=== PATIENT | male | born 2000 | race Caucasian/White ===

== ENCOUNTER 2022-03-24 14:00 | Outpatient (RCR) | payer OTHER, SELFPAY | END 2022-06-14 14:31 | disposition home or self-care (01) | PROVIDERS: PCP Family Medicine; Visit Provider Family Medicine | DX: M25.852 Other specified joint disorders, left hip (principal); Z51.89 Encounter for other specified aftercare | CPT/HCPCS: 97110; 97140; 97161 ==

== ENCOUNTER 2022-08-02 18:15 | Outpatient (REF) | payer OTHER, SELFPAY ==
--- OUTSIDE RECORDS SUMMARY | 2022-08-02 18:24 | XMS_ITS ---
:2000 Author Organization [facility] Address [address] [place] [address] Care Team Providers Name Role Phone Axel Mendoza Unavailable Unavailable PROBLEMS Unknown Problems ALLERGIES Substance Reaction Event Type Date Status Ibuprofen tightness in chest, nausea Drug Allergy Jan, A ctive Aspirin anaphylaxis Drug Allergy Jan, Active ENCOUNTERS Encounter Location Date Diagnosis [address] Jan, Contact [facility] [place] [address] (suspecte d) exposure to covid-[address] Apr, Close expo sure to [address] [place] [address] novel cor onavirus Z20.[address] Mar, Close expo sure to [address] [place] [address] novel cor onavirus Z20.828 IMMUNIZATIONS No Known Immunizations SOCIAL HISTORY Qualifiers Date Never Smoker REASON FOR REFERRAL FUNCTIONAL STATUS PLAN OF CARE VITAL SIGNS MEDICATIONS Medication Instructions Dosage Frequency Start Date End Date Duration S tatus Flovent HFA Active Albuterol Active PROCEDURES Procedure Date Ordered Result Body Site Infectious agent detection by nucleic acid (DNA or Mar 30, 2020 RNA); severe acute respiratory syndrome coronavirus 2 (SARS-CoV-2) (Coronavirus disease [COVID-19]), amplified probe technique Infectious agent detection by nucleic acid (DNA or Jan 11, 2021 RNA); severe acute respiratory syndrome coronavirus 2 (SARS-CoV-2) (Coronavirus disease [COVID-19]), amplified probe technique Infectious agent detection by nucleic acid (DNA or Apr 14, 2020 RNA); severe acute respiratory syndrome coronavirus 2 (SARS-CoV-2) (Coronavirus disease [COVID-19]), amplified probe technique RESULTS Name Result Date Reference Range COVID-19 Molecular Nucleic Acid Amplification 20 29-01-03 Test (NAAT) COVID-19 NEGATIVE COVID-19 Molecular Nucleic Acid Amplification Test (NAAT) COVID-19 NEG COVID-19 Molecular Nucleic Acid Amplification Test (NAAT) COVID-19 Neg REASON FOR VISIT COVID-19 RELATED, Possible Exposure (4 days ago), no sx, fully vaccinated, COVID-19 RELATED, Exposure 10 days ago, no symptoms, COVID-19 RELATED Insurance Providers [facility] Member Patient Patient Patient Patient Patient Subscriber Subscriber Subscriber Group Insurance Plan Plan Plan Plan ID Relationship Address Phone Name Date of ID Name Date of No Type Insurance Insurance Insurance Coverage to Subscriber Address Phone Name Dates Blue [phone] [place] [id number] MARK [id number] Shield PPO [id number] Shield PPO [id number]: [place] [address] [place] [id number] [id number] [address] and [phone] Efrain FLORES 8 [id number] Esther [id number] [facility] [id number] Group
== END 2022-08-02 18:16 | disposition home or self-care (01) ==
LOC: NPINS 18:15
PROVIDERS: PCP Family Medicine; Visit Provider Family Medicine
DX: M70.41 Prepatellar bursitis, right knee (principal)
CPT/HCPCS: 87070

== ENCOUNTER 2023-10-27 23:09 | Emergency (ER) | payer OTHER, SELFPAY ==
[2023-10-27 23:14] VITALS: BP 150/74; PULSE 87; RESP 16; TEMP 36.6; O2SAT 97; BMI 23.7
--- NOTE | 2023-10-27 23:19 | ED.ALLEREA ---
HPI - Allergic Reaction General Chief complaint: Allergic Reaction Stated complaint: reaction to peanuts Time Seen by Provider: 10/27/23 23:16 History of Present Illness HPI narrative: Patient is a 23-year-old gentleman who presents with a general allergic reaction following ingestion of peanut butter cup. Patient has a history of peanut allergies in inadvertently took the peanut butter cup tonight. He did give himself an epi injection and his symptoms resolved. Typically gets throat congestion and hives which last approximately an hour. He ingested the peanut butter cup approximately 45 minutes ago. He is now feeling much better. He is breathing without any stridor and has no other concerns he states this is fairly typical for peanut exposure for him. He does have history of asthma but does not have any symptoms of wheezing. Related Data Home Medications Medication Instructions Recorded Confirmed albuterol sulfate 2.5 mg/3 mL 2.5 mg Q6H PRN cough 10/27/23 (0.083 %) solution for nebulization Allergies Allergy/AdvReac Type Severity Reaction Status Date / Time aspirin Allergy Severe Verified 10/27/23 23:16 peanuts Allergy Severe Anaphylaxis Uncoded 10/27/23 23:16 Review of Systems Status of ROS Reports: 10 or more systems reviewed and unremarkable except as noted in History and below [facility] Medical History Asthma ?J45.909 - Unspecified asthma, uncomplicated (ICD-10) Peanut allergy ?Z91.010 - Allergy to peanuts (ICD-10) Exam Narrative: Exam Narrative: EXAM GENERAL: Patient appears comfortable and well. EYES: No scleral icterus. ENT: Tympanic membranes and oropharynx normal. THYROID: no thyroid nodules or thyromegaly. LYMPH: No supraclavicular or cervical lymphadenopathy. SKIN: Visible skin seen during exam normal or with benign process only. EXT: No dependent lower extremity pedal edema. HEART: Regular rate and rhythm with no murmurs, rubs, or gallops. LUNGS: Clear to auscultation bilaterally with no crackles or wheezes. ABD: Soft, non tender, non distended. PSYCH: Good eye contact, speech is not pressured. Const: Vital Signs, click to edit/add: Vital Signs - 24 hr 10/27/23 23:14 Temperature 97.8 F Pulse Rate [Pulse Oximeter] 87 Respiratory Rate 16 Blood Pressure [Ri ght Upper Arm] 150/74 H Pulse Oximetry 97 Oxygen Delivery Me thod Room Air Course Course ED Course: Patient seen and examined. Vital Signs Vital signs: Initial Vital Signs Temperature 97.8 F 10/27/23 23:14 Temperature Source Temporal Artery Scan 10/27/23 23:14 Pulse Rate 87 10/27/23 23:14 Respiratory Rate 16 10/27/23 23:14 Blood Pressure 150/74 H 10/27/23 23:14 Blood Pressure Mean 99 10/27/23 23:14 Blood Pressure Position Sitting 10/27/23 23:14 Pulse Oximetry 97 10/27/23 23:14 Oxygen Delivery Method Room Air 10/27/23 23:14 Vital Signs Temperature 97.8 F 10/27/23 23:14 Pulse Rate 87 10/27/23 23:14 Respiratory Rate 16 10/27/23 23:14 Blood Pressure 150/74 H 10/27/23 23:14 Pulse Oximetry 97 10/27/23 23:14 Oxygen Delivery Method Room Air 10/27/23 23:14 Temperature 97.8 F 10/27/23 23:14 Pulse Rate 87 10/27/23 23:14 Respiratory Rate 16 10/27/23 23:14 Blood Pressure 150/74 H 10/27/23 23:14 Pulse Oximetry 97 10/27/23 23:14 Oxygen Delivery Method Room Air 10/27/23 23:14 MDM - Allergic Reaction MDM Narrative Medical decision making narrative: Patient is a 23-year-old gentleman with a peanut allergy who had a peanut exposure. He himself a dose of Benadryl and epinephrine and now is asymptomatic. I do note normal vitals with exception of mild hypertension as well as a normal exam. He has no difficulties with airway. I did give him 40 mg of IM Solu-Medrol and start him on whom prednisone 5 day course. He is instructed to avoid peanuts the future and was observed for safe amount time in the emergency room. Differential diagnosis include but not limited to urticaria hives allergic reaction foreign body. Discharge Plan Discharge Clinical Impression: Allergic reaction Patient Disposition: Home, Self-Care Condition: Stable Instructions: General Allergic Reaction (ED) Additional Instructions: Return if symptoms worsen Prednisone as directed Benadryl 25-50 mg 4 times a day as needed Avoid peanuts Follow-up with your doctor as needed. Activity Level: No Restrictions Discharge Diet: Regular Prescriptions: No Action albuterol sulfate 2.5 mg /3 mL (0.083 %) solution for nebulization 2.5 mg Q6H PRN (Reason: cough) Follow Up/Referrals: Johnnie Shepard MD [Primary Care Provider] - Stand Alone Forms: QR Artist Info Instructions
[2023-10-27 23:27] VITALS: PULSE 85; O2SAT 95
[2023-10-27] MEDS: METHYLPREDNISOLONE SOD SUCC 40 MG/ML IM (23:27)
--- OUTSIDE RECORDS SUMMARY | 2023-10-27 23:27 | XMS_ITS | Clinical Summary ---
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 Name Role Phone Pcp, No Primary Care Provider Unavailabl e Allergies Active Allergy Reactions Criticality Noted Date Comments Aspirin Other - Describe In Comment Field,Anaphylaxis High 08/24/2016 Chest tightness, emesis Tight chest Cat Dander Other - Describe In Comment Field 08/23/2016 Dog Dander Other - Describe In Comment Field 08/23/2016 Ibuprofen Anaphylaxis,Other - Describe In Comment Field,Chest Pain High 12/17/2018 other Tight chest Peanut Anaphylaxis High 09/08/2015 Peanut Oil Anaphylaxis High 01/25/2015 All nuts All nuts Peas Anaphylaxis High 08/23/2016 Sesame Oil Anaphylaxis High 01/25/2015 Unlisted Allergen (Include Detail In Comments) Anaphylaxis High 01/25/2015 All tree nuts All tree nuts All tree nuts Medications Medication Sig Dispensed Refills Start Date End Date Status EPINEPHrine (EPIPEN) 0.3 mg/0.3 mL auto-injector Inject 0.3 mg intramuscular. 06/17/2020 Active budesonide-formotero L (SYMBICORT) 80-4.5 mcg/actuation (80-4.5 mcg each actuation) inhaler Inhale 2 Puffs by mouth. 06/24/2020 Active loratadine (CLARITIN) 10 mg liqui-gel capsule Take by mouth. Act gonsalo albuterol sulfate (ALBUTEROL INHL) Inhale 2 Puffs by mouth. Active fluticasone propionate (FLOVENT DISKUS) 100 mcg/actuation inhaler Inhale 1 Puff by mouth. Active ondansetron (ZOFRAN) 4 mg tabletIndications:Na usea and vomiting, unspecified vomiting type Take 1 Tablet (4 mg) by mouth every 8 hours if needed for Nausea/Vomiting. 30 Tablet 05/20/2022 Active Qvar RediHaler 80 mcg/actuation HFAb HFA inhaler 08/15/2023 Active benzonatate (Tessalon Perles) 100 mg capsuleIndications:M oderate asthma with exacerbation, unspecified whether persistent,Wheezing, Bronchitis with bronchospasm Take 1 Capsule (100 mg) by mouth 3 times daily if needed for Cough. 30 Capsule 08/16/2023 Active albuterol 0.083% (2.5 mg/3 mL) neb solutionIndications: Moderate asthma with exacerbation, unspecified whether persistent,Wheezing, Bronchitis with bronchospasm Inhale 3 mL (2.5 mg) via a nebulizer every 6 hours if needed for Cough 1st choice. 180 mL 08/16/2023 Active azithromycin (Zithromax Z-Ronal) 250 mg tabletIndications:Mo derate asthma with exacerbation, unspecified whether persistent,Wheezing, Bronchitis with bronchospasm Take 500 mg (2 tabs) by mouth on day 1, then 250 mg (1 tab) daily for days 2-5. 6 Tablet 08/16/2023 Active Active Problems No known active problems Encounters Date Type Department Care Team Description 08/16/2023 4:10 PM OPTICIAN MANAGER Office Visit [facility] [address] [place] [address] Elvia Thornton PA Asthma (Wheezing and cough x 4 days ) 08/16/2023 Travel from Last 3 Months Social History Tobacco Use Types Packs/Day Years Used Date Smoking Tobacco: Never Smokeless Tobacco: Never Tobacco Cessation:Counseling Given: Yes Alcohol Use Standard Drinks/Week Comments Yes 0 (1 standard drink = 0.6 oz pur e alcohol) occasional Social Connections Answer Date Recorded Frequency of Communication with Friends and Fami ly Not on file 03/06/2022 Sex and Gender Information Value Date Recorded Sex Assigned at Not on file Gender Identity Not on file Sexual Orientation Not on file Obstetrics History Last Filed Vital Signs Vital Sign Reading Time Taken Comments Blood Pressure 109/65 08/16/2023 1:54 PM OPTICIAN MANAGER Pulse 85 08/16/2023 1:54 PM OPTICIAN MANAGER Temperature 36.8 ??C (98.2 ??F) 08/16/2023 1:54 PM CS T Respiratory Rate - - Oxygen Saturation 97% 08/16/2023 1:54 PM OPTICIAN MANAGER Inhaled Oxygen Concentration - - Weight 81 kg (178 lb 9.6 oz) 08/16/2023 1:54 PM OPTICIAN MANAGER Height 181.7 cm (5' 11.54) 03/06/2022 11:38 AM CDT Body Mass Index - - Plan of Treatment Health Maintenance Due Date Last Done Comments Tdap 2013 Depression screening for age 12+ 2014 HIV for age 15-65 2017 HPV series for age 9-26 (1 - Male 3-dose series) 2017 Hepatitis C screening for age 18-79 2020 Tetanus booster 2022 COVID-19 vaccine series (2022- season) 2023 04/11/2022, 06/24/2021, 09/09/2020, Additional history exists BMI (ht and wt on same day) for age 18+ 03/06/2023 03/06/2022 Influenza for age 9-49 02/10/2024 Meningococcal series for age 11-21 Aged Out No longer eligible based on patient's age to complete this topic Pneumococcal series for age 6-64 Aged Out No longer eligible based on patient's age to complete this topic Care Teams Pig Breeder Relationship Specialty Start Date End Date Pcp, No . PCP - General 01/28/21
--- OUTSIDE RECORDS SUMMARY | 2023-10-27 23:27 | XMS_ITS | Patient Health Record ---
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 Name Role Phone Cherry Crawford MD Primary Care Provider Unavaila ble ALLERGIES Allergen (clinical drug ingredient) Drug/Non Drug Allergy documented on EMR Reaction Allergy Type Onset Date Status ibuprofen Ibuprofen tightness in chest, nausea Drug Allergy Active aspirin Aspirin anaphylaxis Drug Allergy Activ e REASON FOR REFERRAL No Information MEDICATIONS Medication SIG (Take, Route, Frequency, Duration) Notes Start Date End Date Status Flovent HFA Active Albuterol Active SOCIAL HISTORY Tobacco Use: Social History Observation Description Date Details (start date - stop date) Never Smoker NA - NA Sex Assigned At : Social History Observation Description Sex Assigned At Unknown Tobacco Use/Smoking Question Answer Notes You are a nonsmoker PLAN OF TREATMENT No Information Insurance Providers Payer Name Payer Address Payer Phone Subscriber Number Group Number Insured Name Patient Relationship to Insured Coverage Start Date Coverage End Date [employer] [address] [address] [place] [phone] [id number] MARK MCFADDEN Self - patient is the insured [facility] [address] [place] [address] [id number] ANABEL MCFADDEN Parent MEDICAL (GENERAL) HISTORY Medical History History ICD Code mild asthma
[2023-10-27 23:30] VITALS: PULSE 84; O2SAT 96
[2023-10-27 23:31] VITALS: BP 128/83; PULSE 86; RESP 16; O2SAT 96
[2023-10-28] VITALS (21 sets, daily range): BP systolic 106–135; BP diastolic 44–82; PULSE 58–100; RESP 14–18; TEMP 36.9; O2SAT 91–99
[2023-10-28] MEDS: IPRAT-ALBUT 0.5-2.5 MG/3 ML NEB 1 NEB IH (00:10)
[2023-10-28] MEDS: diphenhydrAMINE 25 MG in 0.9 % SODIUM CHLORIDE 100 ml 100 ML 402 MG IVPB (00:14)
[2023-10-28] MEDS: EPINEPHrine 0.3 MG PEN IM (00:17)
[2023-10-28] MEDS: 0.9 % SODIUM CHLORIDE 1000 ml 1,000 ML IV (00:18)
[2023-10-28] MEDS: ONDANSETRON 2 MG/ML inj 4 MG IVP (00:18)
== END 2023-10-28 06:45 | disposition home or self-care (01) ==
LOC: ED 23:25
PROVIDERS: Emergency Provider Internal Medicine
DX: T78.1XXA Other adverse food reactions, not elsewhere classified, initial encounter (principal); L50.9 Urticaria, unspecified; Z91.010 Allergy to peanuts
CPT/HCPCS: 94640; 94761; 96365; 96372; 96375; 99283; J0171; J1200; J2405; J2919; J7030